=== PATIENT | male | born 1990 | race Caucasian/White ===

== ENCOUNTER 2017-05-03 07:13 | Emergency (ER) | payer OTHER ==
[2017-05-03 07:41] VITALS: BP 126/74
[2017-05-03] MEDS ORDERED: DEXAMETHASONE 10 MG/ML VIAL PO STA (08:19)
--- NOTE | 2017-05-03 08:19 | ED Physician Documentation ---
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 Review of Systems Constitutional: reports: Chills, Myalgias. denies: Fever Eyes: denies: Decreased vision Ears: denies: Ear pain Nose: reports: Rhinorrhea / runny nose, Congestion Throat: reports: Sore throat Cardiac: denies: Chest pain / pressure Respiratory: reports: Cough. denies: Dyspnea GI: denies: Vomiting PD PAST MEDICAL HISTORY - Past Medical History Past Medical History: No - Past Surgical History Past Surgical History: No - Present Medications Home Medications: Ambulatory Orders Medication Instructions Recorded Confirmed Azithromycin [Zithromax] 250 mg PO DAILY #6 tablet 05/03/17 - Allergies Allergies/Adverse Reactions: Allergies Allergy/AdvReac Type Severity Reaction Status Date / Time No Known Drug Allergies Allergy Verified 05/03/17 07:41 - Social History Does the pt smoke?: No Smoking Status: Never smoker Does the pt drink ETOH?: Yes Does the pt have substance abuse?: No - Immunizations Immunizations are current?: Yes PD ED PE NORMAL - Vitals Vital signs reviewed: Yes (Normal) - General General: No acute distress, Well developed/nourished - HEENT HEENT: Atraumatic, PERRL, EOMI, Other (Both TMs are inflamed the right worse than the left the pharynx is with minimal erythema and no exudate.) - Neck Neck: Supple, no meningeal sign, No bony TTP - Cardiac Cardiac: RRR, No murmur - Respiratory Respiratory: No respiratory distress, Clear bilaterally - Abdomen Abdomen: Soft, Non tender - Back Back: No CVA TTP, No spinal TTP - Derm Derm: Normal color, Warm and dry, No rash - Extremities Extremities: No deformity, No edema - Neuro Neuro: No motor deficit, No sensory deficit - Psych Psych: Normal mood, Normal affect Results - Vitals Vitals: Vital Signs - 24 hr 05/03/17 07:33 Temperature 36.7 C Heart Rate 64 Respiratory 20 Rate Blood Pressure 126/74 O2 Saturation 97 Oxygen O2 Source Room air - Labs Labs: Laboratory Tests 05/03/17 08:15 Group A Strep Rapid Negative PD MEDICAL DECISION MAKING - ED course Complexity details: reviewed results, re-evaluated patient, considered differential, d/w patient ED course: 26-year-old male with a sore throat and cough has otitis media on examination his rapid strep is negative. We have given him some dexamethasone and we will put him on some azithromycin. Departure - Departure Disposition: Home, Self Care Clinical Impression: Otitis media Qualifiers: Otitis media type: suppurative Chronicity: acute Laterality: bilateral Recurrence: not specified as recurrent Spontaneous tympanic membrane rupture: without spontaneous rupture Qualified Code(s): H66.003 - Acute suppurative otitis media without spontaneous rupture of ear drum, bilateral Instructions: ED Otitis Media Acute Adult [facility] [place] Prescriptions: Azithromycin [Zithromax] 250 mg PO DAILY #6 tablet
[2017-05-03 08:31] LABS: RAPID STREP SCREEN REAGENT QC YELLOW (YELLOW)
[2017-05-03] MEDS ORDERED: DEXAMETHASONE 10 MG/ML VIAL ONE (08:39)
[2017-05-03] MEDS ORDERED: CHERRY SYRUP 10 ML UDC PO ONE (08:40)
== END 2017-05-03 08:58 | disposition home or self-care (01) ==
LOC: ED 07:13
DX: H66.003 Acute suppurative otitis media without spontaneous rupture of ear drum, bilateral (principal)
CPT/HCPCS: 87070; 87430; 99283; A9270; 83970